=== PATIENT | male | born 1990 | race Caucasian/White ===

== ENCOUNTER 2017-06-15 18:11 | Emergency (ER) | payer SELFPAY ==
[2017-06-15 18:26] VITALS: TEMP 100.5
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
[2017-06-15] MEDS: SULFA/TRIMETH 800/160 (DS) TAB 1 EA TAB PO ONE (19:35)
[2017-06-15] MEDS: TETANUS,DIPHTHERIA,PERTUSSIS 1 EA SYG IM ONE (19:36)
[2017-06-15 19:43] VITALS: BP 132/75; O2SAT 98
== END 2017-06-15 19:43 | disposition home or self-care (01) ==
LOC: ER 18:11
DX: S30.0XXA Contusion of lower back and pelvis, initial encounter (principal); V86.99XA Unspecified occupant of other special all-terrain or other off-road motor vehicle injured in nontraffic accident, initial encounter; Y92.9 Unspecified place or not applicable